=== PATIENT | male | born 1965 | race African-American/Black ===

== ENCOUNTER 2020-01-10 20:45 | Emergency (ER) | payer OTHER ==
--- NOTE | 2020-01-10 20:57 | PDOC ---
Rapid Medical Evaluation Time Seen by Provider: 01/10/20 20:54 Medical Evaluation: Allergies Allergy/AdvReac Type Severity Reaction Status Date / Time No Known Allergies Allergy Verified 01/07/20 18:34 Vital Signs Temp Pulse Resp BP Pulse Ox 98.3 F 88 20 165/89 99 01/10/20 20:51 01/10/20 20:51 01/10/20 20:51 01/10/20 20:51 01/10/20 20:51 01/10/20 20:54 Pt presents for evaluation of low back pain since Friday. States he was seen in this ED and was treated with flexaril and toradol with no relief of symptoms. States his R leg feels numb. Denies saddle anesthesia, bladder/bowel incontinence Exam: Walking with limp, grossly neurologically intact. Orders: x-ray Pt to proceed to the ER for evaluation PCP: Ishan Villegas Discharge Disposition - Diagnosis Back pain with sciatica - Referrals Referrals: Ishan Villegas MD [Primary Care Provider] - - Patient Instructions - Post Discharge Activity
[2020-01-10 20:59] VITALS: BP 165/89; PULSE 88; TEMP 98.3; BMI 25.7
--- NOTE | 2020-01-10 21:40 | PDOC ---
*Physical Exam - Vital Signs Last Vital Signs Temp Pulse Resp BP Pulse Ox 98.3 F 88 20 165/89 99 01/10/20 20:51 01/10/20 20:51 01/10/20 20:51 01/10/20 20:51 01/10/20 20:51 Medical Decision Making - Medical Decision Making 01/10/20 21:40 Patient seen by the advanced practice provider under my supervision. Ancillary testing reviewed as necessary. I agree with plan as outlined by the advanced practice provider. Discharge - Discharge Information Problems reviewed: Yes Clinical Impression/Diagnosis: Back pain with sciatica Disposition: HOME - Additional Discharge Information Prescriptions: Ibuprofen 600 mg PO QID PRN #20 tablet PRN Reason: Back Pain traMADol HCL [Ultram -] 50 mg PO Q8H PRN #7 tablet MDD 3 PRN Reason: Pain - Follow up/Referral Referrals: Alberto Goel MD [Staff Physician] - Call tomorrow Ishan Villegas MD [Primary Care Provider] - Call tomorrow - Patient Discharge Instructions Patient Printed Discharge Instructions: DI for Back Pain With Sciatica Additional Instructions: Do light stretches Apply ice to the area for the first 24 hours. Then alternate with ice and heat after. Take ibuprofen every 6 hours as needed for pain. Take Flexeril as prescribed for muscle spasm. Flexeril can make you sleepy, do not drive or operate heavy machinery after taking the medication. Follow-up with an orthopedic doctor if symptoms persist. A referral was given to you today. Return to the emergency room for any worsening symptoms. - Post Discharge Activity Work/Back to School Note: Back to Work
[2020-01-10] MEDS ORDERED: IBUPROFEN 600 MG TABLET (FP) PO ONE ×2 (21:49→22:06)
[2020-01-10] MEDS ORDERED: LIDOCAINE HCL 2% JELLY (30 ML/TUBE) TP ONE (21:49)
[2020-01-10] MEDS ORDERED: diazePAM 5 MG TABLET PO ONE (21:49)
--- NOTE | 2020-01-10 21:50 | PDOC ---
History of Present Illness - General Chief Complaint: Back Pain Stated Complaint: BACK PAIN Time Seen by Provider: 01/10/20 20:54 History Source: Patient - History of Present Illness Initial Comments: 01/10/20 22:29 54-year-old male complaining of right lower back pain radiating down to the right leg. Patient was seen in this ER 2 days ago with similar pain and was diagnosed with sciatica. Patient reports that he has been taking his Flexeril with no Motrin. Patient reports that the Flexeril has no significant improvement in pain. Patient with history of lower back pain Past History - Medical History Allergies/Adverse Reactions: Allergies Allergy/AdvReac Type Severity Reaction Status Date / Time No Known Allergies Allergy Verified 01/07/20 18:34 Home Medications: Ambulatory Orders Ibuprofen [Motrin -] 600 mg PO TID PRN #21 tablet 10/26/13 No Home Medications 0 dose .ROUTE UTDICT 10/26/13 Cyclobenzaprine HCl [Flexeril 10 mg] 10 mg PO BID PRN #10 tablet 01/07/20 Ibuprofen 600 mg PO QID PRN #20 tablet 01/10/20 traMADol HCL [Ultram -] 50 mg PO Q8H PRN #7 tablet MDD 3 01/10/20 COPD: No - Psycho-Social/Smoking History Smoking History: Never smoked Have you smoked in the past 12 months: No - Substance Abuse Hx (Audit-C & DAST Scrn) How often the patient has a drink containing alcohol: Never Score: In Men: 4 or > Positive; In Women: 3 or > Positive: 0 Screen Result (Pos requires Nsg. Audit-10AR): Negative Review of Systems - Review of Systems Able to Perform ROS?: Yes Is the patient limited Macedonian proficient: No Constitutional: No: Symptoms Reported, See HPI, Chills, Diaphoresis, Fever, Loss of Appetite, Malaise, Night Sweats, Weakness, Weight Stable, Unintentional Wgt. Loss, Unexplained wgt Loss, Other Musculoskeletal: Yes: Back Pain, Muscle Pain *Physical Exam - Vital Signs Last Vital Signs Temp Pulse Resp BP Pulse Ox 98.3 F 88 20 165/89 99 01/10/20 20:51 01/10/20 20:51 01/10/20 20:51 01/10/20 20:51 09/21/20 20:51 - Physical Exam General Appearance: Yes: Appropriately Dressed Musculoskeletal: positive: Muscle Spasm, Other (paraspinal are tenderness to the lumbar area). negative: Vertebral Tenderness Extremity: positive: Normal Capillary Refill, Normal Inspection, Normal Range of Motion Integumentary: positive: Normal Color, Dry, Warm Neurologic: positive: Fully Oriented, Alert, Normal Mood/Affect Medical Decision Making - Medical Decision Making A: back pain with sciatica P: pain control muscle relaxer lidocaine patch 01/10/20 22:43 Reports slight improvement in pain. Patient is being driven home by girlfriend. Strict return precautions reviewed patient is advised to follow-up with orthopedic/primary care for possible physical therapy Discharge - Discharge Information Problems reviewed: Yes Clinical Impression/Diagnosis: Back pain with sciatica Condition: Stable Disposition: HOME - Additional Discharge Information Prescriptions: Ibuprofen 600 mg PO QID PRN #20 tablet PRN Reason: Back Pain traMADol HCL [Ultram -] 50 mg PO Q8H PRN #7 tablet MDD 3 PRN Reason: Pain - Follow up/Referral Referrals: Ishan Villegas MD [Primary Care Provider] - Call tomorrow Alberto Goel MD [Staff Physician] - Call tomorrow - Patient Discharge Instructions Patient Printed Discharge Instructions: DI for Back Pain With Sciatica Additional Instructions: Do light stretches Apply ice to the area for the first 24 hours. Then alternate with ice and heat after. Take ibuprofen every 6 hours as needed for pain. Take Flexeril as prescribed for muscle spasm. Flexeril can make you sleepy, do not drive or operate heavy machinery after taking the medication. Follow-up with an orthopedic doctor if symptoms persist. A referral was given to you today. Return to the emergency room for any worsening symptoms. - Post Discharge Activity Work/Back to School Note: Back to Work
[2020-01-10] MEDS ORDERED: LIDOCAINE PATCH REMOVAL MC SCH (22:00)
[2020-01-10] MEDS ORDERED: LIDOCAINE 5% TOPICAL PATCH TP ONE (22:05)
[2020-01-10] MEDS ORDERED: LIDOCAINE 5% TOPICAL PATCH ONE (22:07)
[2020-01-10] MEDS ORDERED: diazePAM 5 MG TABLET ONE (22:07)
== END 2020-01-10 23:00 | disposition home or self-care (01) ==
LOC: JER 20:45
DX: M54.5 Low back pain (principal)
CPT/HCPCS: 72100-TC-FY; 99283-25